=== PATIENT | male | born 1960 | race American Indian/Alaskan Native ===

== ENCOUNTER 2017-05-20 20:55 | Emergency (ER) | payer OTHER ==
[2017-05-20 22:00] VITALS: BP 142/92
[2017-05-21] MEDS ORDERED: TORADOL IM ONE (04:15)
--- NOTE | 2017-05-21 04:20 | Emergency Department Report ---
ED General Adult HPI - General Chief complaint: Pain General Stated complaint: BILATERAL HANDS/FEET PAIN Time Seen by Provider: 05/21/17 03:39 Source: patient Mode of arrival: Ambulatory Limitations: No Limitations - History of Present Illness Initial comments: This is a 57-year-old male nontoxic, well nourished in appearance, no acute signs of distress presents to the ED with c/o of acute on chronic bilateral upper and lower extremities diabetic neuropathy pain times 5 years. Patient stated he currently takes gabapentin with minimal to no relief as patient stated he is immune to it. Patient describes pain as a tingling with needle pen to the extremities. She denies any chest pain, short of breath, fever, chills, nausea, vomiting, back pain. Patient denies any allergies. Past medical history includes diabetes, hypertension. MD Complaint: diabetic neuropathy pain -: year(s) (5) Location: left, right, upper extremity, lower extremity Radiation: non-radiation Severity scale (0 -10): 8 Quality: stabbing Consistency: intermittent Improves with: none Worsens with: none Associated Symptoms: denies other symptoms. denies: confusion, chest pain, cough, diaphoresis, fever/chills, headaches, loss of appetite, malaise, nausea/ vomiting, rash, seizure, shortness of breath, syncope, weakness Treatments Prior to Arrival: none - Related Data Home Medications Medication Instructions Recorded Confirmed Last Taken Naproxen [Naprosyn] 500 mg PO BID 03/17/13 03/17/13 03/16/13 16:00 glipiZIDE [glipiZIDE XL] 10 mg PO BID 03/17/13 03/17/13 03/17/13 08:00 metFORMIN [Glucophage] 1,000 mg PO BID 03/17/13 03/17/13 03/17/13 08:00 Previous Rx's Medication Instructions Recorded Last Taken Type Gabapentin [Neurontin] 600 mg PO QPM #90 tab 03/17/13 Unknown Rx traMADol [Ultram] 50 mg PO Q6HR PRN #15 tablet 05/21/17 Unknown Rx Allergies Allergy/AdvReac Type Severity Reaction Status Date / Time No Known Allergies Allergy Verified 03/17/13 11:36 ED Review of Systems ROS: Stated complaint: BILATERAL HANDS/FEET PAIN Other details as noted in HPI Constitutional: denies: chills, fever Eyes: denies: eye pain, eye discharge, vision change ENT: denies: ear pain, throat pain Respiratory: denies: cough, shortness of breath, wheezing Cardiovascular: denies: chest pain, palpitations Endocrine: no symptoms reported Gastrointestinal: denies: abdominal pain, nausea, diarrhea Genitourinary: denies: urgency, dysuria Musculoskeletal: arthralgia. denies: back pain, joint swelling Skin: denies: rash, lesions Neurological: denies: headache, weakness, paresthesias Psychiatric: denies: anxiety, depression Hematological/Lymphatic: denies: easy bleeding, easy bruising ED Past Medical Hx - Past Medical History Previous Medical History?: Yes Hx Hypertension: Yes Hx Diabetes: Yes - Surgical History Past Surgical History?: Yes Additional Surgical History: R arm (as teenager-trauma) - Social History Smoking Status: Never Smoker Substance Use Type: Alcohol, Marijuana - Medications Home Medications: Home Medications Medication Instructions Recorded Confirmed Last Taken Type Gabapentin [Neurontin] 600 mg PO QPM #90 tab 03/17/13 Unknown Rx Naproxen [Naprosyn] 500 mg PO BID 03/17/13 03/17/13 03/16/13 16:00 History glipiZIDE [glipiZIDE XL] 10 mg PO BID 03/17/13 03/17/13 03/17/13 08:00 History metFORMIN [Glucophage] 1,000 mg PO BID 03/17/13 03/17/13 03/17/13 08:00 History traMADol [Ultram] 50 mg PO Q6HR PRN #15 tablet 05/21/17 Unknown Rx ED Physical Exam - General Limitations: No Limitations General appearance: alert, in no apparent distress - Head Head exam: Present: atraumatic, normocephalic - Eye Eye exam: Present: normal appearance Pupils: Present: normal accommodation - ENT ENT exam: Present: normal exam, mucous membranes moist - Neck Neck exam: Present: normal inspection, full ROM. Absent: tenderness, meningismus, lymphadenopathy, thyromegaly - Respiratory Respiratory exam: Present: normal lung sounds bilaterally. Absent: respiratory distress, wheezes, rales, rhonchi, stridor, chest wall tenderness, accessory muscle use, decreased breath sounds, prolonged expiratory - Cardiovascular Cardiovascular Exam: Present: regular rate, normal rhythm, normal heart sounds. Absent: irregular rhythm, systolic murmur, diastolic murmur, rubs, gallop - GI/Abdominal GI/Abdominal exam: Present: soft, normal bowel sounds. Absent: distended, tenderness, guarding, rebound, rigid, diminished bowel sounds - Rectal Rectal exam: Present: deferred - Extremities Exam Extremities exam: Present: normal inspection, full ROM, normal capillary refill , other (Decreased pedel pulses to bilateral lower extremities). Absent: tenderness, pedal edema, joint swelling, calf tenderness - Back Exam Back exam: Present: normal inspection, full ROM - Neurological Exam Neurological exam: Present: alert, oriented X3, normal gait, reflexes normal - Psychiatric Psychiatric exam: Present: normal affect, normal mood - Skin Skin exam: Present: warm, dry, intact, normal color. Absent: rash ED Course Vital Signs 05/20/17 05/20/17 21:54 22:17 Temperature 98.0 F 98 F Pulse Rate 98 H 98 H Respiratory 18 18 Rate Blood Pressure 142/92 142/92 O2 Sat by Pulse 97 97 Oximetry - Reevaluation(s) Reevaluation #1: 05/21/17 04:18 Patient is speaking in full sentences with no signs of distress noted. ED Medical Decision Making - Medical Decision Making This 67-year-old male that presents with diabetic neuropathy pain. Patient is stable and was examined by me. Upon examination there is no joint swelling, joint redness. There is decreased pedal pulses that is related to past medical history. Patient did receive Toradol 30 mg IM in the ED which persisted symptoms are improving and subsiding. Patient is discharged with Ultram and was instructed not to operate any machinery while taking it as due to drowsiness. Patient was referred instructed to Follow-up with a primary care doctor in 3-5 days or if symptoms worsen and continue return to emergency room as soon as possible. At time of discharge, the patient does not seem toxic or ill in appearance. No acute signs of distress noted. Patient agrees to discharge treatment plan of care. No further questions noted by the patient. Critical care attestation.: If time is entered above; I have spent that time in minutes in the direct care of this critically ill patient, excluding procedure time. ED Disposition Clinical Impression: Diabetic neuropathy Qualifiers: Diabetes mellitus type: type 2 Diabetes mellitus complication detail: with other neurological complication Qualified Code(s): E11.49 - Type 2 diabetes mellitus with other diabetic neurological complication Disposition: TO HOME OR SELFCARE Is pt being admited?: No Does the pt Need Aspirin: No Condition: Stable Instructions: Diabetes Mellitus Type 2 in Adults (ED), Diabetic Neuropathy (ED) , Tramadol (By mouth) Additional Instructions: Follow-up with a primary care doctor in 3-5 days or if symptoms worsen and continue return to emergency room as soon as possible. Prescriptions: traMADol [Ultram] 50 mg PO Q6HR PRN #15 tablet PRN Reason: Pain Referrals: DEMETRIUS SINHA MD [Primary Care Provider] - 3-5 Days ROSE MARY HAHN MD [Staff Physician] - 3-5 Days [facility] [Outside] - 3-5 Days [facility] [Outside] - 3-5 Days PRIMARY CAREMD [Referring] - 3-5 Days Forms: Work/School Release Form(ED)
[2017-05-22] MEDS ORDERED: APRESOLINE ONE ×2 (05:00→05:25)
[2017-05-22] MEDS ORDERED: QUELICIN ONE (05:20)
[2017-05-22] MEDS ORDERED: NACL 0.9% 1000 ML 0 ML ONE (06:50)
== END 2017-05-21 04:30 | disposition home or self-care (01) ==
LOC: ED 20:55
DX: E11.49 Type 2 diabetes mellitus with other diabetic neurological complication (principal); I10 Essential (primary) hypertension
CPT/HCPCS: 96372; 99282; J1885; J0330; J0360; J7030